=== PATIENT | female | born 1975 | race Caucasian/White ===

== ENCOUNTER → 2016-10-19 | Outpatient (CLI) | payer MEDICAID | LOC: OD 15:21 | PROVIDERS: ATTEND Surgery | DX: N63 Unspecified lump in breast (principal); N60.19 Diffuse cystic mastopathy of unspecified breast | CPT/HCPCS: 88173 ==

== ENCOUNTER 2017-02-16 08:03 | Emergency (ER) | payer MEDICAID ==
[2017-02-16 08:12] VITALS: BP 121/68
--- NOTE | 2017-02-16 08:30 | ER Document Report ---
ED General - General Chief Complaint: Eye Problem Stated Complaint: BILATERAL EYE PAIN Time Seen by Provider: 02/16/17 08:18 Mode of Arrival: Ambulatory Information source: Patient Notes: 41-year-old female presents with complaints of bilateral eye redness and discharge. Patient notes symptoms started last night. Patient denies any fevers or chills denies any nausea vomiting or diarrhea. Patient notes it is crusted TRAVEL OUTSIDE OF THE [place] IN LAST 30 DAYS: No - HPI Onset: Yesterday Onset/Duration: Sudden Quality of pain: Burning Severity: Mild Pain Level: 1 Associated symptoms: None Exacerbated by: Denies Relieved by: Denies Similar symptoms previously: No Recently seen / treated by doctor: No - Related Data Allergies/Adverse Reactions: amoxicillin Allergy (Verified 02/16/17 08:05) Penicillins Allergy (Verified 02/16/17 08:05) Skin Redness Past Medical History - Social History Smoking Status: Never Smoker Cigarette use (# per day): No Chew tobacco use (# tins/day): No Smoking Education Provided: No Family History: Reviewed & Not Pertinent Patient has suicidal ideation: No Patient has homicidal ideation: No Renal/ Medical History: Denies: Hx Peritoneal Dialysis Past Surgical History: Reports: Hx Gynecologic Surgery - cyst removal from ovary , endomet., Hx Tubal Ligation - Immunizations Immunizations up to date: Yes Hx Diphtheria, Pertussis, Tetanus Vaccination: No Review of Systems - Review of Systems Notes: REVIEW OF SYSTEMS: CONSTITUTIONAL : Denies fever, chills, or sweats. Denies recent illness. EENT: Admits to discharge from the eyes CARDIOVASCULAR: Denies chest pain. Denies palpitations or racing or irregular heart beat. Denies ankle edema. RESPIRATORY: Denies cough, cold, or chest congestion. Denies shortness of breath, difficulty breathing, or wheezing. GASTROINTESTINAL: Denies abdominal pain or distention. Denies nausea, vomiting , or diarrhea. Denies blood in vomitus, stools, or per rectum. Denies black, tarry stools. Denies constipation. GENITOURINARY: Denies difficulty urinating, painful urination, burning, frequency, blood in urine, or discharge. FEMALE GENITOURINARY: Denies vaginal bleeding, heavy or abnormal periods, irregular periods. Denies vaginal discharge or odor. MUSCULOSKELETAL: Denies back or neck pain or stiffness. Denies joint pain or swelling. SKIN: Denies rash, lesions or sores. HEMATOLOGIC : Denies easy bruising or bleeding. LYMPHATIC: Denies swollen, enlarged glands. NEUROLOGICAL: Denies confusion or altered mental status. Denies passing out or loss of consciousness. Denies dizziness or lightheadedness. Denies headache. Denies weakness or paralysis or loss of use of either side. Denies problems with gait or speech. Denies sensory loss, numbness, or tingling. Denies seizures. PSYCHIATRIC: Denies anxiety or stress. Denies depression, suicidal ideation, or homicidal ideation. ALL OTHER SYSTEMS REVIEWED AND NEGATIVE. PHYSICAL EXAMINATION: GENERAL: Well-appearing, well-nourished and in no acute distress. HEAD: Atraumatic, normocephalic. EYES: Pupils equal round and reactive to light, extraocular movements intact, conjunctiva are bilaterally injected crusted discharge noted ENT: Nares patent, oropharynx clear without exudates. Moist mucous membranes. NECK: Normal range of motion, supple without lymphadenopathy LUNGS: Breath sounds clear to auscultation bilaterally and equal. No wheezes rales or rhonchi. HEART: Regular rate and rhythm without murmurs ABDOMEN: Soft, nontender, nondistended abdomen. No guarding, no rebound. No masses appreciated. Female : deferred Musculoskeletal: Normal range of motion, no pitting or edema. No cyanosis. NEUROLOGICAL: Cranial nerves grossly intact. Normal speech, normal gait. Normal sensory, motor exams PSYCH: Normal mood, normal affect. SKIN: Warm, Dry, normal turgor, no rashes or lesions noted. Dictation was performed using [employer] voice recognition software Physical Exam - Vital signs Vitals: Temp Pulse Resp BP Pulse Ox 98.1 F 73 12 121/68 100 02/16/17 08:05 02/16/17 08:05 02/16/17 08:05 02/16/17 08:05 02/16/17 08:05 Course - Re-evaluation Re-evalutation: 02/16/17 09:36 Patient's presentation is consistent with bacterial conjunctivitis given the large amount of discharge that she is noted from her eyes. Patient does not wear contacts has been told to discard her eye makeup After performing a Medical Screening Examination, I estimate there is LOW risk for a RETAINED CORNEAL or LID FOREIGN BODY, DEEP SPACE INFECTION (e.g., ORBITAL CELLULITIS OR ABSCESS), ACUTE GLAUCOMA, PENETRATING GLOBE INJURY, RETINAL DETACHMENT, or MENINGITIS thus I consider the discharge disposition reasonable. I have reevaluated this patient multiple times and no significant life threatening changes are noted. Also, there is no evidence or peritonitis, sepsis , or toxicity. The patient and I have discussed the diagnosis and risks, and we agree with discharging home with outpatient follow-up with the understanding that symptoms and presentations can change. We also discussed returning to the Emergency Department immediately if new or worsening symptoms occur. We have discussed the symptoms which are most concerning (e.g., changing or worsening pain, vision changes, neck stiffness or fever) that necessitate immediate return. - Vital Signs Vital signs: Temp Pulse Resp BP Pulse Ox 98.1 F 73 12 121/68 100 02/16/17 08:05 02/16/17 08:05 02/16/17 08:05 02/16/17 08:05 02/16/17 08:05 Discharge - Discharge Clinical Impression: Acute bacterial conjunctivitis of both eyes Condition: Stable Disposition: HOME, SELF-CARE Instructions: Conjunctivitis ([facility]) Prescriptions: Ciprofloxacin HCl [Ciloxan 0.3% Oph Soln 2.5 ml] 2 drop OP Q6 #1 bottle Forms: Return to Work Referrals: BRENDA MORTENSEN MD [ACTIVE STAFF] - 02/19/17
== END 2017-02-16 08:40 | disposition home or self-care (01) ==
LOC: ER 08:03
DX: H10.33 Unspecified acute conjunctivitis, bilateral (principal); B96.89 Other specified bacterial agents as the cause of diseases classified elsewhere; Z88.0 Allergy status to penicillin
CPT/HCPCS: 99283

== ENCOUNTER 2017-04-14 12:44 | Emergency (ER) | payer MEDICAID ==
[2017-04-14 12:57] VITALS: BP 138/78
--- NOTE | 2017-04-14 13:41 | ER Document Report ---
ED General - General Chief Complaint: Dizziness Stated Complaint: DIZZY, DIARRHEA Time Seen by Provider: 04/14/17 13:39 Mode of Arrival: Ambulatory Information source: Patient Notes: This is a 41-year-old female with a history of seasonal allergies and anxiety who was usual state of health until approximately 11 AM this morning when she began to feel shaky, with chills, nausea and diarrhea. Patient denies any sick contacts. She last ate 7 PM last night. Only medicine: Zyrtec Allergies: Amoxicillin TRAVEL OUTSIDE OF THE [place] IN LAST 30 DAYS: No - HPI Onset: This morning Onset/Duration: Gradual Quality of pain: No pain Severity: None Pain Level: Denies Associated symptoms: Chills, Diarrhea, Nausea Exacerbated by: Denies Relieved by: Denies Similar symptoms previously: No Recently seen / treated by doctor: No - Related Data Allergies/Adverse Reactions: amoxicillin Allergy (Verified 02/16/17 08:05) Penicillins Allergy (Verified 02/16/17 08:05) Skin Redness Past Medical History - General Information source: Patient - Social History Smoking Status: Never Smoker Cigarette use (# per day): No Chew tobacco use (# tins/day): No Frequency of alcohol use: None Drug Abuse: None Lives with: Family Family History: Reviewed & Not Pertinent Patient has suicidal ideation: No Patient has homicidal ideation: No - Medical History Medical History: Other - Past Medical History Cardiac Medical History: Reports: None Pulmonary Medical History: Reports: None EENT Medical History: Reports: None Neurological Medical History: Reports: None Endocrine Medical History: Reports: None Renal/ Medical History: Reports: None. Denies: Hx Peritoneal Dialysis Malignancy Medical History: Reports: None GI Medical History: Reports: None Musculoskeltal Medical History: Reports None Skin Medical History: Reports None Psychiatric Medical History: Reports: Hx Anxiety Traumatic Medical History: Reports: None Infectious Medical History: Reports: None Surgical Hx: Negative Past Surgical History: Reports: Hx Gynecologic Surgery - cyst removal from ovary , endomet., Hx Tubal Ligation - Immunizations Immunizations up to date: Yes Hx Diphtheria, Pertussis, Tetanus Vaccination: No Review of Systems - Review of Systems Constitutional: denies: Chills - B12 deficiency, Fever EENT: No symptoms reported Cardiovascular: No symptoms reported Respiratory: No symptoms reported Gastrointestinal: See HPI Genitourinary: No symptoms reported Female Genitourinary: No symptoms reported Musculoskeletal: No symptoms reported Skin: No symptoms reported Hematologic/Lymphatic: No symptoms reported Neurological/Psychological: No symptoms reported Physical Exam - Vital signs Vitals: Temp Pulse Resp BP Pulse Ox 98.6 F 83 16 138/78 H 100 04/14/17 12:57 04/14/17 12:57 04/14/17 12:57 04/14/17 12:57 04/14/17 12:57 Notes: Physical exam: GENERAL: 21-year-old female, no acute distress HEAD: Atraumatic, normocephalic. EYES: Pupils equal round and reactive to light, extraocular movements intact, sclera anicteric, conjunctiva are normal. ENT: TMs normal, nares patent, oropharynx clear without exudates. Moist mucous membranes. NECK: Normal range of motion, supple without obvious mass or JVD. LUNGS: Breath sounds clear to auscultation bilaterally and equal. No wheezes rales or rhonchi. HEART: Regular rate and rhythm without murmurs, rubs or gallops. ABDOMEN: Soft, normoactive bowel sounds. No tenderness to palpation. No guarding, no rebound. No masses appreciated. EXTREMITIES: Normal range of motion, no pitting or edema. No clubbing or cyanosis. NEUROLOGICAL: Cranial nerves II through XII grossly intact. Normal speech, moving all extremities. PSYCH: Normal mood, normal affect. SKIN: Warm, Dry, normal turgor, no rashes or lesions noted. Course - Vital Signs Vital signs: Temp Pulse Resp BP Pulse Ox 98.6 F 83 16 138/78 H 100 04/14/17 12:57 04/14/17 12:57 04/14/17 12:57 04/14/17 12:57 04/14/17 12:57 - Laboratory Result Diagrams: 04/14/17 14:00 04/14/17 14:00 Laboratory results interpreted by me: 04/14/17 13:22 Urine Blood SMALL H Discharge - Discharge Clinical Impression: Acute viral syndrome Condition: Stable Disposition: HOME, SELF-CARE Instructions: Viral Syndrome ([facility]) Additional Instructions: Thank you for choosing [facility] for your care. The examination and treatment you have received in the Emergency Department today has been rendered on an emergency basis only and is not intended to be a substitute for complete medical care. You should contact your follow-up physician as it is important that he or she examine you for any new or remaining problems. If given a copy of any lab tests or radiology reports, please bring them with you when you see your physician. If your problem worsens or new symptoms appear and you are unable to arrange prompt follow-up care, return to the Emergency Department. Any other instructions: Rest, drink plenty of fluids, return to the emergency room for any concerns or getting worse: Headache, neck pain, not tolerating fluids, abdominal pain. Follow-up in [facility]. Forms: Return to Work Referrals: KAILEY PETERSON PA-C [Primary Care Provider] - Follow up as needed [facility] [Provider Group] - Follow up as needed (This is the number the [facility] affiliated with the [facility])
[2017-04-14 14:17] LABS: ABSOLUTE LYMPHOCYTES (AUTO) 1.2 10^3/uL (0.5-4.7); ABSOLUTE MONOCYTES (AUTO) 0.3 10^3/uL (0.1-1.4); ABSOLUTE NEUT (AUTO) 4.1 10^3/uL (1.7-8.2); BASOPHILS % (AUTO) 0.2 % (0-2); EOSINOPHILS % (AUTO) 0.4 % (0-6); HEMATOCRIT 38.5 % (36.0-47.0); HEMOGLOBIN 13.3 g/dL (12.0-15.5); HGB HCT DIFFERENCE 1.4; LYMPHOCYTES % (AUTO) 21.5 % (13-45); MEAN CORPUSCULAR HEMOGLOBIN 30.7 pg (27.0-33.4); MEAN CORPUSCULAR HGB CONC 34.6 g/dL (32.0-36.0); MEAN CORPUSCULAR VOLUME 89 fl (80-97); MONOCYTES % (AUTO) 5.7 % (3-13); RED BLOOD COUNT 4.34 10^6/uL (3.72-5.28); RED CELL DISTRIBUTION WIDTH 11.8 % (11.5-14.0); SEGMENTED NEUTROPHILS % (AUTO) 72.2 % (42-78); WHITE BLOOD COUNT 5.7 10^3/uL (4.0-10.5)
[2017-04-14 14:34] LABS: ALANINE AMINOTRANSFERASE 32 U/L (9-52); ALBUMIN 4.6 g/dL (3.5-5.0); ALKALINE PHOSPHATASE 59 U/L (38-126); ANION GAP 10 (5-19); ASPARTATE AMINO TRANSFERASE 18 U/L (14-36); BILIRUBIN,DIRECT 0.2 mg/dL (0.0-0.4); BLOOD UREA NITROGEN 8 mg/dL (7-20); CALCIUM 9.6 mg/dL (8.4-10.2); CARBON DIOXIDE 26 mmol/L (22-30); CHLORIDE 106 mmol/L (98-107); CREATININE RESULT 0.62 mg/dL (0.52-1.25); GLUCOSE 90 mg/dL (75-110); SODIUM 141.7 mmol/L (137-145); TOTAL PROTEIN 7.2 g/dL (6.3-8.2)
[2017-04-14 14:51] LABS: APPEARANCE,URINE CLEAR; BILIRUBIN,URINE NEGATIVE (NEGATIVE); GLUCOSE, URINE NEGATIVE (NEGATIVE); KETONES,URINE NEGATIVE (NEGATIVE); LEUKOCYTE ESTERASE,URINE NEGATIVE (NEGATIVE); NITRITE,URINE NEGATIVE (NEGATIVE); PROTEIN,URINE NEGATIVE (NEGATIVE); URINE SPECIFIC GRAVITY 1.001; UROBILINOGEN,URINE NEGATIVE mg/dL (<2.0)
== END 2017-04-14 16:05 | disposition home or self-care (01) ==
LOC: ER 12:44
DX: B34.9 Viral infection, unspecified (principal); R11.0 Nausea; R19.7 Diarrhea, unspecified; J30.2 Other seasonal allergic rhinitis; Z79.899 Other long term (current) drug therapy; Z88.0 Allergy status to penicillin
CPT/HCPCS: 36415; 80053; 81001; 81025; 84443; 85025; 87804; 99283

== ENCOUNTER 2017-06-07 11:03 | Emergency (ER) | payer MEDICAID ==
--- NOTE | 2017-06-07 13:00 | ER Document Report ---
HPI - HPI Pain Level: 1 - RESPIRATORY Respiratory: REPORTS: Coughing - REPRODUCTIVE Reproductive: DENIES: : Past Medical History - Social History Smoking Status: Never Smoker Chew tobacco use (# tins/day): No Frequency of alcohol use: None Drug Abuse: None Family History: Reviewed & Not Pertinent Patient has suicidal ideation: No Patient has homicidal ideation: No Renal/ Medical History: Denies: Hx Peritoneal Dialysis Psychiatric Medical History: Reports: Hx Anxiety Past Surgical History: Reports: Hx Breast Surgery - reduction, Hx Gynecologic Surgery - cyst removal from ovary, endomet., Hx Orthopedic Surgery - cyst removed from R knee, Hx Tubal Ligation - Immunizations Immunizations up to date: Yes Hx Diphtheria, Pertussis, Tetanus Vaccination: No Vertical Provider Document - CONSTITUTIONAL Agree With Documented VS: Yes Exam Limitations: No Limitations - INFECTION CONTROL TRAVEL OUTSIDE OF THE [place] IN LAST 30 DAYS: No - RESPIRATORY O2 Sat by Pulse Oximetry: 100 Course - Vital Signs Vital signs: Temp Pulse Resp BP Pulse Ox 98.3 F 69 16 139/84 H 100 06/07/17 11:12 06/07/17 11:12 06/07/17 11:12 06/07/17 11:12 06/07/17 11:12 Discharge - Discharge Clinical Impression: Allergic conjunctivitis Qualifiers: Laterality: bilateral Qualified Code(s): H10.13 - Acute atopic conjunctivitis, bilateral Condition: Stable Disposition: HOME, SELF-CARE Instructions: Conjunctivitis, Allergic Additional Instructions: Return immediately for any new or worsening symptoms Followup with your primary care provider, call tomorrow to make a followup appointment Prescriptions: Cetirizine HCl [Zyrtec 10 mg Tablet] 1 tab PO DAILY #15 tablet Olopatadine HCl [Pataday] 1 drop OP DAILY #2.5 ml Forms: Return to Work Referrals: KAVIN MONAHAN DO [NO LOCAL MD] - Follow up as needed
--- NOTE | 2017-06-07 13:01 | ER Document Report ---
ED General - General Chief Complaint: Congestion Stated Complaint: CONGESTION Time Seen by Provider: 06/07/17 12:43 TRAVEL OUTSIDE OF THE [place] IN LAST 30 DAYS: No - Related Data Allergies/Adverse Reactions: amoxicillin Allergy (Verified 06/07/17 11:05) Penicillins Allergy (Verified 06/07/17 11:05) Skin Redness Past Medical History - Social History Smoking Status: Never Smoker Chew tobacco use (# tins/day): No Frequency of alcohol use: None Drug Abuse: None Family History: Reviewed & Not Pertinent Patient has suicidal ideation: No Patient has homicidal ideation: No Renal/ Medical History: Denies: Hx Peritoneal Dialysis Psychiatric Medical History: Reports: Hx Anxiety Past Surgical History: Reports: Hx Breast Surgery - reduction, Hx Gynecologic Surgery - cyst removal from ovary, endomet., Hx Orthopedic Surgery - cyst removed from R knee, Hx Tubal Ligation - Immunizations Immunizations up to date: Yes Hx Diphtheria, Pertussis, Tetanus Vaccination: No Physical Exam - Vital signs Vitals: Temp Pulse Resp BP Pulse Ox 98.3 F 69 16 139/84 H 100 06/07/17 11:12 06/07/17 11:12 06/07/17 11:12 06/07/17 11:12 06/07/17 11:12 Course - Vital Signs Vital signs: Temp Pulse Resp BP Pulse Ox 98.3 F 69 16 139/84 H 100 06/07/17 11:12 06/07/17 11:12 06/07/17 11:12 06/07/17 11:12 06/07/17 13:00 Discharge - Discharge Clinical Impression: Allergic conjunctivitis Qualifiers: Laterality: bilateral Qualified Code(s): H10.13 - Acute atopic conjunctivitis, bilateral Condition: Stable Disposition: HOME, SELF-CARE Instructions: Conjunctivitis, Allergic Additional Instructions: Return immediately for any new or worsening symptoms Followup with your primary care provider, call tomorrow to make a followup appointment Prescriptions: Cetirizine HCl [Zyrtec 10 mg Tablet] 1 tab PO DAILY #15 tablet Olopatadine HCl [Pataday] 1 drop OP DAILY #2.5 ml Forms: Return to Work Referrals: KAVIN MONAHAN DO [NO LOCAL MD] - Follow up as needed
[2017-06-07 13:13] VITALS: BP 117/78
--- NOTE | 2017-06-07 18:41 | ER Document Report ---
ED General - General Chief Complaint: Congestion Stated Complaint: CONGESTION Time Seen by Provider: 06/07/17 12:43 Mode of Arrival: Ambulatory Information source: Patient Notes: 42-year-old female presents with complaints of bilateral eye itching redness swelling under her eyelids that started this morning. Patient notes it was slightly crusty. Patient is an playground supervisor TRAVEL OUTSIDE OF THE [place] IN LAST 30 DAYS: No - HPI Onset: Yesterday - Initially felt itchy yesterday worsened this morning Onset/Duration: Sudden Quality of pain: Burning Severity: Mild Pain Level: 0 - Mild burning Associated symptoms: Other Exacerbated by: Denies Relieved by: Denies Similar symptoms previously: Yes - Patient had bacterial conjunctivitis last year Recently seen / treated by doctor: No - Related Data Allergies/Adverse Reactions: amoxicillin Allergy (Verified 06/07/17 11:05) Penicillins Allergy (Verified 06/07/17 11:05) Skin Redness Past Medical History - Social History Smoking Status: Never Smoker Cigarette use (# per day): No Chew tobacco use (# tins/day): No Smoking Education Provided: No Frequency of alcohol use: None Drug Abuse: None Family History: Reviewed & Not Pertinent Patient has suicidal ideation: No Patient has homicidal ideation: No Renal/ Medical History: Denies: Hx Peritoneal Dialysis Psychiatric Medical History: Reports: Hx Anxiety Past Surgical History: Reports: Hx Breast Surgery - reduction, Hx Gynecologic Surgery - cyst removal from ovary, endomet., Hx Orthopedic Surgery - cyst removed from R knee, Hx Tubal Ligation - Immunizations Immunizations up to date: Yes Hx Diphtheria, Pertussis, Tetanus Vaccination: No Review of Systems - Review of Systems Notes: REVIEW OF SYSTEMS: CONSTITUTIONAL : Denies fever, chills, or sweats. Denies recent illness. EENT: Admits to erythema of the eyes swelling on and eyelids CARDIOVASCULAR: Denies chest pain. Denies palpitations or racing or irregular heart beat. Denies ankle edema. RESPIRATORY: Denies cough, cold, or chest congestion. Denies shortness of breath, difficulty breathing, or wheezing. GASTROINTESTINAL: Denies abdominal pain or distention. Denies nausea, vomiting , or diarrhea. Denies blood in vomitus, stools, or per rectum. Denies black, tarry stools. Denies constipation. GENITOURINARY: Denies difficulty urinating, painful urination, burning, frequency, blood in urine, or discharge. FEMALE GENITOURINARY: Denies vaginal bleeding, heavy or abnormal periods, irregular periods. Denies vaginal discharge or odor. MUSCULOSKELETAL: Denies back or neck pain or stiffness. Denies joint pain or swelling. SKIN: Denies rash, lesions or sores. HEMATOLOGIC : Denies easy bruising or bleeding. LYMPHATIC: Denies swollen, enlarged glands. NEUROLOGICAL: Denies confusion or altered mental status. Denies passing out or loss of consciousness. Denies dizziness or lightheadedness. Denies headache. Denies weakness or paralysis or loss of use of either side. Denies problems with gait or speech. Denies sensory loss, numbness, or tingling. Denies seizures. PSYCHIATRIC: Denies anxiety or stress. Denies depression, suicidal ideation, or homicidal ideation. ALL OTHER SYSTEMS REVIEWED AND NEGATIVE. PHYSICAL EXAMINATION: GENERAL: Well-appearing, well-nourished and in no acute distress. HEAD: Atraumatic, normocephalic. EYES: Pupils equal round and reactive to light, extraocular movements intact, conjunctiva are mildly erythemetous, mild swelling under the eye lid ENT: Nares patent, oropharynx clear without exudates. Moist mucous membranes. NECK: Normal range of motion, supple without lymphadenopathy LUNGS: Breath sounds clear to auscultation bilaterally and equal. No wheezes rales or rhonchi. HEART: Regular rate and rhythm without murmurs ABDOMEN: Soft, nontender, nondistended abdomen. No guarding, no rebound. No masses appreciated. Female : deferred Musculoskeletal: Normal range of motion, no pitting or edema. No cyanosis. NEUROLOGICAL: Cranial nerves grossly intact. Normal speech, normal gait. Normal sensory, motor exams PSYCH: Normal mood, normal affect. SKIN: Warm, Dry, normal turgor, no rashes or lesions noted. Dictation was performed using [employer] voice recognition software Physical Exam - Vital signs Vitals: Temp Pulse Resp BP Pulse Ox 98.3 F 69 16 139/84 H 100 06/07/17 11:12 06/07/17 11:12 06/07/17 11:12 06/07/17 11:12 06/07/17 11:12 Course - Re-evaluation Re-evalutation: 06/07/17 18:39 pt noted to have mild erythema and symptoms consistent with allergic conjunctivitis, looks well is in no distress, patient will be discharged home with topical ointments After performing a Medical Screening Examination, I estimate there is LOW risk for a RETAINED CORNEAL or LID FOREIGN BODY, DEEP SPACE INFECTION (e.g., ORBITAL CELLULITIS OR ABSCESS), ACUTE GLAUCOMA, PENETRATING GLOBE INJURY, RETINAL DETACHMENT, or MENINGITIS thus I consider the discharge disposition reasonable. I have reevaluated this patient multiple times and no significant life threatening changes are noted. Also, there is no evidence or peritonitis, sepsis , or toxicity. The patient and I have discussed the diagnosis and risks, and we agree with discharging home with outpatient follow-up with the understanding that symptoms and presentations can change. We also discussed returning to the Emergency Department immediately if new or worsening symptoms occur. We have discussed the symptoms which are most concerning (e.g., changing or worsening pain, vision changes, neck stiffness or fever) that necessitate immediate return. - Vital Signs Vital signs: Temp Pulse Resp BP Pulse Ox 98.8 F 66 16 117/78 100 06/07/17 13:12 06/07/17 13:12 06/07/17 11:12 06/07/17 13:12 06/07/17 13:12 Discharge - Discharge Clinical Impression: Allergic conjunctivitis Qualifiers: Laterality: bilateral Qualified Code(s): H10.13 - Acute atopic conjunctivitis, bilateral Condition: Stable Disposition: HOME, SELF-CARE Instructions: Conjunctivitis, Allergic Additional Instructions: Return immediately for any new or worsening symptoms Followup with your primary care provider, call tomorrow to make a followup appointment Prescriptions: Cetirizine HCl [Zyrtec 10 mg Tablet] 1 tab PO DAILY #15 tablet Olopatadine HCl [Pataday] 1 drop OP DAILY #2.5 ml Forms: Return to Work Referrals: KAVIN MONAHAN DO [NO LOCAL MD] - Follow up as needed
== END 2017-06-07 13:13 | disposition home or self-care (01) ==
LOC: ER 11:03
DX: H10.13 Acute atopic conjunctivitis, bilateral (principal); Z88.0 Allergy status to penicillin
CPT/HCPCS: 99282

== ENCOUNTER 2017-08-08 11:36 | Emergency (ER) | payer OTHER ==
[2017-08-08 11:53] VITALS: BP 111/64
--- NOTE | 2017-08-08 12:14 | ER Document Report ---
ED Eye Complaint - General Chief Complaint: Eye Pain Stated Complaint: RIGHT EYE IRRITATION, SWELLING Time Seen by Provider: 08/08/17 11:58 Mode of Arrival: Ambulatory Information source: Patient TRAVEL OUTSIDE OF THE [place] IN LAST 30 DAYS: No - HPI Patient complains to provider of: right lower eye lid pain. Onset: Just prior to arrival Notes: Patient is here with complaints of right lower eyelid pain. She states that she woke up this morning noticed that her lower eyelid was slightly swollen and slightly tender. She denies any pain to the actual globe itself. She denies any redness or drainage. She denies any pain with eye movement. She does not wear contacts. She denies any blurred or loss vision or injuries to the eye. No redness. She denies any nausea, vomiting, diarrhea. No rash. No sore throat. No cough. No runny nose. Pain is worse with touch, nothing seems to make it better. She denies any other complaints at this time. - Related Data Allergies/Adverse Reactions: amoxicillin Allergy (Verified 06/07/17 11:05) Penicillins Allergy (Verified 06/07/17 11:05) Skin Redness Past Medical History - Social History Smoking Status: Never Smoker Chew tobacco use (# tins/day): No Frequency of alcohol use: None Drug Abuse: None Family History: Reviewed & Not Pertinent Patient has suicidal ideation: No Patient has homicidal ideation: No Renal/ Medical History: Denies: Hx Peritoneal Dialysis Psychiatric Medical History: Reports: Hx Anxiety Past Surgical History: Reports: Hx Breast Surgery - reduction, Hx Gynecologic Surgery - cyst removal from ovary, endomet., Hx Orthopedic Surgery - cyst removed from R knee, Hx Tubal Ligation - Immunizations Immunizations up to date: Yes Hx Diphtheria, Pertussis, Tetanus Vaccination: No Review of Systems - Review of Systems -: Yes All other systems reviewed and negative Physical Exam - Vital signs Vitals: Temp Pulse Resp BP Pulse Ox 98.1 F 68 16 111/64 99 08/08/17 11:52 08/08/17 11:52 08/08/17 11:52 08/08/17 11:52 08/08/17 11:52 - Notes Notes: GENERAL: alert, cooperative, nontoxic, no distress. HEAD: normocephalic, atraumatic EYES: conjunctiva pink without discharge, pupils equal round react light bilaterally. Minimal "swelling to the right lower lid. No erythema. Small stye noted. No foreign body identified. No periorbital redness, swelling, tenderness. EARS: no external swelling, no external redness. TMs pearly fernandez bilaterally with no perforation or erythema. NOSE: atraumatic, no external swelling MOUTH/THROAT: mucous membranes moist and pink NECK: soft, supple, full range of motion, no meningismus. CHEST: no distress, lungs clear and equal throughout. No wheezing, rales, rhonchi. CARDIAC: regular rate and rhythm, no murmur, normal capillary refill, normal pulses. BACK: full range of motion, no CVA tenderness. EXTREMITIES: full range of motion of all extremities. No redness, no swelling. NEURO: alert and oriented 3, no focal deficits, full range of motion of all extremities. PYSCH: appropriate mood, affect. Patient is cooperative. SKIN: pink, warm, dry, no rash. - HEENT Visual acuity- Right eye: 20/20 Visual acuity- Left eye: 20/20 Visual acuity- Both eyes: 20/20 Corrective lenses worn: No Course - Re-evaluation Re-evalutation: 08/08/17 12:12 Patient is nontoxic appearing with stable vitals. She is here with complaints of right lower eyelid pain. She denies any pain to the eyeball itself. She denies any visual complaints. There is no redness noted to the eyeball itself. There is no hyphema. She has some minimal swelling and tenderness to the right lower lid likely the start of a very small stye. There is no sign of periorbital cellulitis or orbital cellulitis. Remainder of the eye exam is unremarkable. No redness or drainage from the eye. This point patient will be discharged home with instructions to apply warm compresses. I will write her a prescription for Naprosyn. Follow-up if not better in the next 3-5 days, sooner for increasing pain, fever, redness, swelling, blurred or loss vision, or for any further concerns. The patient's emergency department workup and current diagnosis were explained to the patient and or family. Follow-up instructions were provided. Medications if prescribed were discussed. Instructions for when to return to the emergency department including specific worrisome symptoms were discussed with the patient and/or family. - Vital Signs Vital signs: Temp Pulse Resp BP Pulse Ox 98.1 F 68 16 111/64 99 08/08/17 11:52 08/08/17 11:52 08/08/17 11:52 08/08/17 11:52 08/08/17 11:52 Discharge - Discharge Clinical Impression: Hordeolum externum (stye) Qualifiers: Laterality: right Eyelid: lower Qualified Code(s): H00.012 - Hordeolum externum right lower eyelid Condition: Stable Disposition: HOME, SELF-CARE Additional Instructions: Apply warm compresses to the sore area. Take medications as prescribed. Follow -up if not better in the next 3-5 days, sooner for worsening pain, fever, redness, swelling, blurred or loss vision, or for any further concerns. Prescriptions: Naproxen [Naprosyn] 500 mg PO BID #20 tablet Forms: Return to Work Referrals: KEVIN CONNELL MD [Primary Care Provider] - Follow up as needed
== END 2017-08-08 12:26 | disposition home or self-care (01) ==
LOC: ER 11:36
DX: H00.012 Hordeolum externum right lower eyelid (principal); Z88.0 Allergy status to penicillin
CPT/HCPCS: 99283

== ENCOUNTER 2017-09-14 21:40 | Emergency (ER) | payer OTHER ==
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
[2017-09-14 23:10] VITALS: BP 108/70
== END 2017-09-14 23:10 | disposition home or self-care (01) ==
LOC: ER 21:40
DX: S00.31XA Abrasion of nose, initial encounter (principal); S00.93XA Contusion of unspecified part of head, initial encounter; S01.21XA Laceration without foreign body of nose, initial encounter; Y04.2XXA Assault by strike against or bumped into by another person, initial encounter; Y92.009 Unspecified place in unspecified non-institutional (private) residence as the place of occurrence of the external cause; Z88.0 Allergy status to penicillin
CPT/HCPCS: 99283

== ENCOUNTER 2017-09-26 17:58 | Emergency (ER) | payer OTHER ==
--- NOTE | 2017-09-26 19:26 | ER Document Report ---
ED Eye Complaint - General Chief Complaint: Eye Pain Stated Complaint: EYE PAIN Time Seen by Provider: 09/26/17 19:13 Notes: Patient is a 42-year-old female complaining of swelling and redness to her left lower lid 1 week. No eye pain, visual change, drainage or crusting. TRAVEL OUTSIDE OF THE [place] IN LAST 30 DAYS: No - HPI Onset: Last week Injury: No Quality of pain: Achy Contact lenses worn: No Associated symptoms: Itching, Redness, Eyelid swelling. denies: Matting - Related Data Allergies/Adverse Reactions: amoxicillin Allergy (Verified 09/26/17 18:00) Penicillins Allergy (Verified 09/26/17 18:00) Skin Redness Past Medical History - General Information source: Patient - Social History Smoking Status: Current Every Day Smoker Frequency of alcohol use: None Drug Abuse: None Lives with: Family Family History: Reviewed & Not Pertinent Renal/ Medical History: Denies: Hx Peritoneal Dialysis Psychiatric Medical History: Reports: Hx Anxiety Past Surgical History: Reports: Hx Breast Surgery - reduction, Hx Gynecologic Surgery - cyst removal from ovary, endomet., Hx Orthopedic Surgery - cyst removed from R knee, Hx Tubal Ligation - Immunizations Immunizations up to date: Yes Hx Diphtheria, Pertussis, Tetanus Vaccination: No Review of Systems - Review of Systems Constitutional: No symptoms reported EENT: See HPI Cardiovascular: No symptoms reported Respiratory: No symptoms reported Gastrointestinal: No symptoms reported Genitourinary: No symptoms reported Female Genitourinary: No symptoms reported Musculoskeletal: No symptoms reported Skin: No symptoms reported Hematologic/Lymphatic: No symptoms reported Neurological/Psychological: No symptoms reported Physical Exam - Vital signs Vitals: Temp Pulse Resp BP Pulse Ox 98.1 F 73 16 112/68 100 09/26/17 18:26 09/26/17 18:26 09/26/17 18:26 09/26/17 18:26 09/26/17 18:26 Interpretation: Normal - General General appearance: Appears well, Alert - HEENT Head: Normocephalic, Atraumatic Eyes: Normal Conjunctiva: Normal Pupils: PERRL Visual acuity- Right eye: 20/20 Visual acuity- Left eye: 20/20 Visual acuity- Both eyes: 20/15 Corrective lenses worn: No Lids everted for exam: left: Stye - Discrete firm pustule to left outer lower lid Ears: Normal Tympanic membrane: Normal Mucous membranes: Moist - Respiratory Respiratory status: No respiratory distress Chest status: Nontender Breath sounds: Normal Chest palpation: Normal - Cardiovascular Rhythm: Regular Heart sounds: Normal auscultation Murmur: No - Abdominal Inspection: Normal Distension: No distension Bowel sounds: Normal Tenderness: Nontender Organomegaly: No organomegaly - Back Back: Normal, Nontender - Extremities General upper extremity: Normal inspection, Nontender, Normal color, Normal ROM , Normal temperature General lower extremity: Normal inspection, Nontender, Normal color, Normal ROM , Normal temperature, Normal weight bearing. No: Anita's sign - Neurological Neuro grossly intact: Yes Cognition: Normal Orientation: AAOx4 Radha Coma Scale Eye Opening: Spontaneous [place] Coma Scale Verbal: Oriented [place] Coma Scale Motor: Obeys Commands Radha Coma Scale Total: 15 Speech: Normal Motor strength normal: LUE, RUE, LLE, RLE Sensory: Normal - Psychological Associated symptoms: Normal affect, Normal mood - Skin Skin Temperature: Warm Skin Moisture: Dry Skin Color: Normal Course - Vital Signs Vital signs: Temp Pulse Resp BP Pulse Ox 98.1 F 73 16 112/68 100 09/26/17 18:26 09/26/17 18:26 09/26/17 18:26 09/26/17 18:26 09/26/17 18:26 Discharge - Discharge Clinical Impression: Stye external Qualifiers: Laterality: left Eyelid: lower Qualified Code(s): H00.015 - Hordeolum externum left lower eyelid Condition: Stable Disposition: HOME, SELF-CARE Instructions: [facility] ([facility] [place]) Additional Instructions: Apply antibiotic ointment as prescribed Warm compresses to eye Follow-up with your primary care as needed Prescriptions: Erythromycin Base [Erythromycin Oph 1 Gm Oint Ud] 1 applic BTH_EYE Q6H #1 tube
[2017-09-26 19:34] VITALS: BP 107/75
== END 2017-09-26 19:36 | disposition home or self-care (01) ==
LOC: ER 17:58
DX: H00.015 Hordeolum externum left lower eyelid (principal); F17.200 Nicotine dependence, unspecified, uncomplicated; Z88.0 Allergy status to penicillin
CPT/HCPCS: 99283

== ENCOUNTER → 2017-12-06 | Outpatient (CLI) | payer OTHER ==
[2017-12-06 11:00] LABS: ABSOLUTE EOSINOPHILS # (AUTO) 0.1 10^3/uL (0.0-0.6); ABSOLUTE LYMPHOCYTES (AUTO) 1.9 10^3/uL (0.5-4.7); ABSOLUTE MONOCYTES (AUTO) 0.3 10^3/uL (0.1-1.4); ABSOLUTE NEUT (AUTO) 2.1 10^3/uL (1.7-8.2); BASOPHILS % (AUTO) 0.5 % (0-2); EOSINOPHILS % (AUTO) 1.8 % (0-6); HEMATOCRIT 35.9 % (36.0-47.0); HEMOGLOBIN 12.4 g/dL (12.0-15.5); LYMPHOCYTES % (AUTO) 42.7 % (13-45); MEAN CORPUSCULAR HEMOGLOBIN 30.8 pg (27.0-33.4); MEAN CORPUSCULAR HGB CONC 34.5 g/dL (32.0-36.0); MEAN CORPUSCULAR VOLUME 89 fl (80-97); MONOCYTES % (AUTO) 7.4 % (3-13); PLATELET COUNT 189 10^3/uL (150-450); RED BLOOD COUNT 4.03 10^6/uL (3.72-5.28); RED CELL DISTRIBUTION WIDTH 11.9 % (11.5-14.0); SEGMENTED NEUTROPHILS % (AUTO) 47.6 % (42-78); TOTAL CELLS COUNTED % (AUTO) 100 %; WHITE BLOOD COUNT 4.4 10^3/uL (4.0-10.5)
[2017-12-06 11:35] LABS: ALANINE AMINOTRANSFERASE 21 U/L (9-52); ALBUMIN 4.3 g/dL (3.5-5.0); ALKALINE PHOSPHATASE 46 U/L (38-126); ANION GAP 10 (5-19); ASPARTATE AMINO TRANSFERASE 17 U/L (14-36); BILIRUBIN,DIRECT 0.2 mg/dL (0.0-0.4); BILIRUBIN,TOTAL 0.9 mg/dL (0.2-1.3); BLOOD UREA NITROGEN 7 mg/dL (7-20); CALCIUM 9.2 mg/dL (8.4-10.2); CARBON DIOXIDE 27 mmol/L (22-30); CHLORIDE 105 mmol/L (98-107); CHOLESTEROL 149.54 mg/dL (0-200); GLUCOSE 88 mg/dL (75-110); POTASSIUM 4.2 mmol/L (3.6-5.0); SODIUM 142.4 mmol/L (137-145); TOTAL PROTEIN 6.6 g/dL (6.3-8.2); TRIGLYCERIDES 110 mg/dL (<150)
[2017-12-06 11:46] LABS: DIRECT LDL 67 mg/dL (<100)
== END ==
LOC: CCC 10:22
DX: Z13.9 Encounter for screening, unspecified (principal)
CPT/HCPCS: 36415; 80053; 80061; 82306; 83036; 84443; 85025

== ENCOUNTER 2018-03-18 16:59 | Emergency (ER) | payer OTHER ==
--- NOTE | 2018-03-18 19:29 | ER Document Report ---
ED ENT - General Chief Complaint: Headache Stated Complaint: HEADACHE,EAR PAIN, SORE THROAT Time Seen by Provider: 03/18/18 18:57 Mode of Arrival: Ambulatory Information source: Patient Notes: Patient is a 42-year-old female comes emergency room complaining of having fluid in her head. Patient basically states that when she lays down to one side she feels the fluid drained from one ear to the other ear. She also feels like her sinuses fill up with fluid when she moves and that when she stands up sometimes her eyes start to water. Patient denies any fevers but states that because this popping and crackling in her ears of the fluid shifting gives her high anxiety and she becomes very anxious and has a frontal headache because of the worrying. She denies any other medical problems however she does state that she cannot take steroids because they increase her anxiety she cannot take decongestants because they cause her blood pressure to go up. TRAVEL OUTSIDE OF THE [place] IN LAST 30 DAYS: No - HPI Patient complains to provider of: Ear problem, Nose problem, Throat problem Onset: Other - 4 days Onset/Duration: Gradual, Persistent, Worse Quality of pain: Achy Pain Level: 3 Location of pain: Ears, Nose, Throat Associated symptoms: Chills, Ear pain, Headache, Runny nose, Sinus pain, Sinus drainage, Sore throat. denies: Stiff neck Similar symptoms previously: Yes Recently seen / treated by doctor: No - Related Data Allergies/Adverse Reactions: amoxicillin Allergy (Verified 09/26/17 18:00) Penicillins Allergy (Verified 09/26/17 18:00) Skin Redness Past Medical History - General Information source: Patient - Social History Smoking Status: Never Smoker Cigarette use (# per day): No Chew tobacco use (# tins/day): No Smoking Education Provided: No Frequency of alcohol use: None Drug Abuse: None Family History: Reviewed & Not Pertinent Patient has suicidal ideation: No Patient has homicidal ideation: No Renal/ Medical History: Denies: Hx Peritoneal Dialysis Psychiatric Medical History: Reports: Hx Anxiety Past Surgical History: Reports: Hx Breast Surgery - reduction, Hx Gynecologic Surgery - cyst removal from ovary, endomet., Hx Orthopedic Surgery - cyst removed from R knee, Hx Tubal Ligation - Immunizations Immunizations up to date: Yes Hx Diphtheria, Pertussis, Tetanus Vaccination: No Review of Systems - Review of Systems Constitutional: No symptoms reported EENT: See HPI, Ear pain, Nose pain, Nose congestion, Nose discharge, Sinus pressure, Sinus discharge, Throat pain, Difficulty swallowing Cardiovascular: No symptoms reported Respiratory: No symptoms reported Gastrointestinal: No symptoms reported Genitourinary: No symptoms reported Female Genitourinary: No symptoms reported Musculoskeletal: No symptoms reported Skin: No symptoms reported Hematologic/Lymphatic: No symptoms reported Neurological/Psychological: No symptoms reported -: Yes All other systems reviewed and negative Physical Exam - Vital signs Vitals: Temp Pulse Resp BP Pulse Ox 98.2 F 83 12 105/70 99 03/18/18 17:27 03/18/18 17:27 03/18/18 17:27 03/18/18 17:27 03/18/18 17:27 Interpretation: Hypotensive - Notes Notes: PHYSICAL EXAMINATION: GENERAL: Patient is a well-nourished well-developed 42-year-old female who is in no apparent distress on physical examination. She does appear somewhat uncomfortable. HEAD: Atraumatic, normocephalic. EYES: Pupils equal round and reactive to light, extraocular movements intact, conjunctiva are normal. ENT: Examination head and upper airway showed nasal mucosa to be moderately erythematous and edematous with some rhinorrhea that is yellowish in color. Patient also displays bilateral nasal congestion. Further examination of the ears shows patient has bilateral external canals with some mild cerumen but there is no obstructive view of the TMs. TMs are visualized. There is moderate amount of air-fluid levels noted. Right is worse than left. Does not appear to be a serous effusion behind the eardrums. Further examination of the sinuses show frontal maxillary sinus tenderness to palpation. Further exploration of the post anterior pharynx shows moderate amount of erythema tonsils are enlarged with no exudates. Uvula is midline with no exudate. Airways patent. NECK: Normal range of motion, supple with bilateral anterior cervical lymphadenopathy. LUNGS: Breath sounds clear to auscultation bilaterally and equal. No wheezes rales or rhonchi. HEART: Regular rate and rhythm without murmur Female : deferred Musculoskeletal: Normal range of motion, no pitting or edema. No cyanosis. NEUROLOGICAL: Normal speech, normal gait. Normal sensory, motor exams PSYCH: Normal mood, normal affect. SKIN: Warm, Dry, normal turgor, no rashes or lesions noted. Course - Re-evaluation Re-evalutation: 03/18/18 20:45 I discussed with patient the was treating her pharyngitis with antibiotics and her sinus is with antihistamine. She has multiple reactions to steroids and we decided to go to local steroid in the nose which would give her the systemic effect and a antihistamine rather than one with a decongestant and an antibiotic for the pharyngitis. I have informed her that will take a while for this to go away. - Vital Signs Vital signs: Temp Pulse Resp BP Pulse Ox 98.2 F 59 L 12 117/68 100 03/18/18 20:12 03/18/18 20:12 03/18/18 17:27 03/18/18 20:12 03/18/18 20:12 Discharge - Discharge Clinical Impression: Sinusitis Qualifiers: Sinusitis location: other Chronicity: acute Recurrence: recurrent Qualified Code(s): J01.81 - Other acute recurrent sinusitis Pharyngitis Qualifiers: Pharyngitis/tonsillitis etiology: unspecified etiology Qualified Code(s): J02.9 - Acute pharyngitis, unspecified Disposition: HOME, SELF-CARE Instructions: Sinusitis ([facility]), Tonsillitis ([facility]) Additional Instructions: As we discussed you basically have 2 things going on. First you have a pharyngitis which is a sore throat type presentation and to you have a sinusitis which is the clogged ears and the fluid behind the ears presentation. We are going to go ahead and treat you with an antibiotic for the pharyngitis but we were not going to use that for the sinusitis. She is you have a history of having reactions to oral prednisone's as far as anxiety levels go we will place you on a nasal steroid that is much more concentrated to the area. Will also place you on Chlor-Trimeton which is an antihistamine dries up the inner ear very well. This is one that is at the pharmacies that sometimes is over-the -counter and sometimes they have it is a prescription if they do not have it as a prescription asked him which one is there [id number] brand. Use some nasal saline to keep the secretions thin and the nose moist. Tylenol alternate with Motrin to keep the aches and pains and headaches down. Years is going to be a little more difficult to treat because of your sensitivity to oral steroids and oral antihistamine decongestants. The patient with that it will eventually clear itself up. Should you have any concerns or problems you spike a fever get things get worse return to ER for recheck. Prescriptions: Azithromycin [Zithromax 250 mg Tablet] 250 mg PO ASDIR PRN #6 tablet PRN Reason: Chlorpheniramine Maleate [Chlor-Trimeton 4 mg Tablet] 1 tab PO Q4 PRN #1 pkg PRN Reason: Fluticasone Propionate [Flonase Nasal [place] 50 Mcg/[place] 16 gm] 2 sprays NASL Q12 #1 inhaler Referrals: [facility] [Primary Care Provider] - Follow up as needed
[2018-03-18 20:13] VITALS: BP 117/68
== END 2018-03-18 20:16 | disposition home or self-care (01) ==
LOC: ER 16:59
DX: J01.81 Other acute recurrent sinusitis (principal); J02.9 Acute pharyngitis, unspecified; R51 Headache; H92.09 Otalgia, unspecified ear; R09.89 Other specified symptoms and signs involving the circulatory and respiratory systems
CPT/HCPCS: 99283

== ENCOUNTER 2018-08-05 13:24 | Emergency (ER) | payer BC, OTHER ==
[2018-08-05 13:31] VITALS: BP 111/71
--- NOTE | 2018-08-05 14:08 | ER Document Report ---
ED ENT - General Chief Complaint: Ear Pain Stated Complaint: EAR PAIN Time Seen by Provider: 08/05/18 13:49 Primary Care Provider: [facility] [Primary Care Provider] - Follow up as needed Mode of Arrival: Ambulatory Information source: Patient Notes: 43-year-old female presents to ED for complaint of fluid in the ears and sinus congestion sinus pain since February. She states she is been seen by a provider and by a food service coordinator and has received no relief. Is alert oriented respirations regular and unlabored speaking in full sentences walks with a even steady gait. TRAVEL OUTSIDE OF THE [place] IN LAST 30 DAYS: No - HPI Patient complains to provider of: Ear problem, Nose problem Onset: - February Onset/Duration: Persistent Quality of pain: Achy, Other - Pressure Severity: Moderate Pain Level: 4 Context: Recent Illness Location of pain: Ears, Nose, Sinus Associated symptoms: Ear pain, Runny nose, Sinus pain, Sinus drainage Similar symptoms previously: Yes Recently seen / treated by doctor: Yes - Related Data Allergies/Adverse Reactions: amoxicillin Allergy (Verified 08/05/18 13:55) Penicillins Allergy (Verified 08/05/18 13:55) Skin Redness Past Medical History - General Information source: Patient - Social History Smoking Status: Never Smoker Frequency of alcohol use: None Drug Abuse: None Family History: Reviewed & Not Pertinent Patient has suicidal ideation: No Patient has homicidal ideation: No - Past Medical History Cardiac Medical History: Reports: None, Other - Palpitations with many medicatio ns Pulmonary Medical History: Reports: None EENT Medical History: Reports: Ears, Nose Neurological Medical History: Reports: None Endocrine Medical History: Reports: None Renal/ Medical History: Reports: Hx Ovarian Cysts Malignancy Medical History: Reports: None GI Medical History: Reports: None Musculoskeletal Medical History: Reports Hx Musculoskeletal Deformity, Reports Hx Musculoskeletal Trauma Skin Medical History: Reports None Psychiatric Medical History: Reports: Hx Anxiety Traumatic Medical History: Reports: None Infectious Medical History: Reports: None Past Surgical History: Reports: Hx Breast Surgery - reduction, Hx Gynecologic Surgery - cyst removal from ovary, endomet., Hx Orthopedic Surgery - cyst removed from R knee, Hx Tubal Ligation - Immunizations Immunizations up to date: Yes Hx Diphtheria, Pertussis, Tetanus Vaccination: Yes Review of Systems - Review of Systems Constitutional: No symptoms reported EENT: Ear pain, Nose discharge, Sinus pressure Cardiovascular: No symptoms reported Respiratory: No symptoms reported Gastrointestinal: No symptoms reported Genitourinary: No symptoms reported Female Genitourinary: No symptoms reported Musculoskeletal: No symptoms reported Skin: No symptoms reported Hematologic/Lymphatic: No symptoms reported Neurological/Psychological: No symptoms reported -: Yes All other systems reviewed and negative Physical Exam - Vital signs Vitals: Temp Pulse Resp BP Pulse Ox 98.2 F 83 16 111/71 100 08/05/18 13:30 08/05/18 13:30 08/05/18 13:30 08/05/18 13:30 08/05/18 13:30 Interpretation: Normal - General General appearance: Appears well, Alert - HEENT Head: Normocephalic, Atraumatic Eyes: Normal Pupils: PERRL Ears: Normal External canal: Normal Tympanic membrane: Normal Sinus: Tenderness Nasal: Purulent discharge, Swelling Mouth/Lips: Normal Mucous membranes: Normal Pharynx: Post nasal drainage Neck: Normal - Respiratory Respiratory status: No respiratory distress Chest status: Nontender Breath sounds: Normal Chest palpation: Normal - Cardiovascular Rhythm: Regular Heart sounds: Normal auscultation Murmur: No - Abdominal Inspection: Normal Distension: No distension Bowel sounds: Normal Tenderness: Nontender Organomegaly: No organomegaly - Back Back: Normal, Nontender - Extremities General upper extremity: Normal inspection, Nontender, Normal color, Normal ROM, Normal temperature General lower extremity: Normal inspection, Nontender, Normal color, Normal ROM, Normal temperature, Normal weight bearing. No: Anita's sign - Neurological Neuro grossly intact: Yes Cognition: Normal Orientation: AAOx4 Radha Coma Scale Eye Opening: Spontaneous Barnard Coma Scale Verbal: Oriented Radha Coma Scale Motor: Obeys Commands Radha Coma Scale Total: 15 Speech: Normal Motor strength normal: LUE, RUE, LLE, RLE Sensory: Normal - Psychological Associated symptoms: Normal affect, Normal mood - Skin Skin Temperature: Warm Skin Moisture: Dry Skin Color: Normal Course - Vital Signs Vital signs: Temp Pulse Resp BP Pulse Ox 98.2 F 83 16 111/71 100 08/05/18 13:30 08/05/18 13:30 08/05/18 13:30 08/05/18 13:30 08/05/18 13:30 Discharge - Discharge Clinical Impression: Otalgia of both ears, Sinus pain URI (upper respiratory infection) Qualifiers: URI type: unspecified viral URI Qualified Code(s): J06.9 - Acute upper respiratory infection, unspecified Condition: Stable Disposition: HOME, SELF-CARE Additional Instructions: UPPER RESPIRATORY ILLNESS: You have a viral infection of the respiratory passages -- a "cold." This common infection causes nasal congestion, drainage, and often sore throat and cough. It is highly contagious. The disease usually lasts about 10 to 14 days. There is no "cure" for the viral infection -- it must run its course. If there is a complication, such as bacterial infection in the nose, sinuses, middle ear, or bronchial tubes, antibiotics may be required. The antibiotics won't affect the virus. Drink plenty of fluids. A humidifier may help. An expectorant medication or decongestant may make you more comfortable. Use acetaminophen or ibuprofen for fever or aches. See the doctor if fever persists over two days, if there is any significant worsening of your symptoms, or if you simply fail to improve as expected. Your ears are clear bilaterally. There is no infection. You do have swelling to the right nasal passage. This could be from allergies or from upper respiratory infection. There is no bacterial infection noted. There is no need for antibiotics at this time. Please try the Mucinex 600 mg daily and continue with the Zyrtec and Flonase. USE OF ACETAMINOPHEN (Tylenol): Acetaminophen may be taken for pain relief or fever control. It's much safer than aspirin, offering a wider range of "safe" dosages. It is safe during . Some brand names are Tylenol, Panadol, Datril, Anacin 3, Tempra, and Liquiprin. Acetaminophen can be repeated every four hours. The following are maximum recommended dosages: >89 pounds or adults 650 mg to 900 mg Acetaminophen can be repeated every four hours. Maximum dose not to exceed 4000 mg a day. FOLLOW-UP CARE: If you have been referred to a physician for follow-up care, call the physicians office for an appointment as you were instructed or within the next two days. If you experience worsening or a significant change in your symptoms, notify the physician immediately or return to the Emergency Department at any time for re-evaluation. Please follow-up with the ears nose and throat specialist as I have listed. Referrals: [facility] [Primary Care Provider] - Follow up as needed YENCHA,RUI W, MD [ACTIVE STAFF] - Follow up as needed CHANTAL LENZ DO [ASSOCIATE] - Follow up as needed
== END 2018-08-05 14:15 | disposition home or self-care (01) ==
LOC: ER 13:24
DX: H92.03 Otalgia, bilateral (principal); J06.9 Acute upper respiratory infection, unspecified; R09.81 Nasal congestion; J34.89 Other specified disorders of nose and nasal sinuses; Z88.0 Allergy status to penicillin; R09.82 Postnasal drip
CPT/HCPCS: 99282